=== PATIENT | male | born 1990 | race Caucasian/White ===

== ENCOUNTER 2023-11-16 12:47 | Emergency (ER) | payer OTHER ==
[2023-11-16 13:05] VITALS: RESP 16; TEMP 98
[2023-11-16 13:28] LABS: Basophils % (A) 0 %; Eosinophils # (A) 0.1 k/uL (0-0.7); Eosinophils % (A) 1 %; HCT 42.2 % (39.0-53.0); HGB 13.8 gm/dL (13.0-17.5); Lymphocytes # (A) 1.4 k/uL (1.0-4.8); Lymphocytes % (A) 15 %; MCH 28.6 pg (25.0-35.0); MCHC 32.8 g/dL (31.0-37.0); Mean Platelet Volume 6.8; Monocytes # (A) 0.3 k/uL (0-1.0); Monocytes % (A) 3 %; Neutrophils # (A) 7.9 k/uL (1.3-7.7); Neutrophils % (A) 81 %; Platelet Count 370 k/uL (150-450); RBC 4.85 m/uL (4.30-5.90); RDW 13.6 % (11.5-15.5); WBC 9.8 k/uL (3.8-10.6)
[2023-11-16] MEDS: KETOROLAC 15 MG/ML 1 ML VIAL IVP STA (13:31)
[2023-11-16] MEDS: SODIUM CHLORIDE 0.9% 1,000 ML IV STA (13:31)
[2023-11-16] MEDS: ONDANSETRON 4 MG/2 ML VIAL IVP STA (13:32)
[2023-11-16 13:41] LABS: ALT 42 U/L (4-49); AST 40 U/L (17-59); African American GFR (CKD) >90 (>60 ml/min/1.73 sqM); Albumin 5.1 g/dL (3.5-5.0); Alkaline Phosphatase 71 U/L (38-126); Anion Gap 10 mmol/L; Blood Urea Nitrogen 15 mg/dL (9-20); Calcium 10.2 mg/dL (8.4-10.2); Carbon Dioxide 25 mmol/L (22-30); Chloride 108 mmol/L (98-107); Glucose 118 mg/dL (74-99); Magnesium 2.2 mg/dL (1.6-2.3); Non-African American GFR(CKD) >90 (>60 ml/min/1.73 sqM); Potassium 4.4 mmol/L (3.5-5.1); Sodium 143 mmol/L (137-145); Total Bilirubin 0.5 mg/dL (0.2-1.3); Total Protein 8.1 g/dL (6.3-8.2)
[2023-11-16 13:46] LABS: INR 0.9 (<1.2); Partial Thromboplastin Time 25.3 sec (22.0-30.0); Prothrombin Time 10.4 sec (10.0-12.5)
--- NOTE | 2023-11-16 14:10 | XR ---
EXAMINATION TYPE: XR chest 2V DATE OF EXAM: 11/16/2023 COMPARISON: None INDICATION: Chest pain TECHNIQUE: Frontal and lateral views of the chest are obtained. FINDINGS: The heart size is normal. The pulmonary vasculature is normal. The lungs are clear. IMPRESSION: 1. No acute pulmonary process. [facility], , 11/16/2023 2:08 PM
--- NOTE | 2023-11-16 14:49 | ED ---
Chest Pain HPI - General Chief Complaint: Chest Pain Stated Complaint: Chest pain Time Seen by Provider: 11/16/23 12:50 Source: patient, EMS, RN notes reviewed Mode of arrival: EMS Limitations: no limitations - History of Present Illness Initial Comments: 33-year-old male presents emergency department with chief complaint of drug withdrawal. Patient states he was at [place]. He states that he is here for refractory pain abuse but states he is usually on Suboxone but he did not have it when he presented to [facility] and they were unable to prescribe this. Patient states to having severe withdrawal symptoms. He states he woke up this morning not feeling well states he is very anxious having palpitations of chest comfort. Patient with prior cardiac disease. He states the chest pain has essentially resolved patient is very anxious and having withdrawal symptoms including diarrhea, vomiting. - Related Data Home Medications Medication Instructions Recorded Confirmed Acetaminophen Tab [Tylenol] 650 mg PO Q4H 11/16/23 11/16/23 Amoxicillin 500 mg PO TID 11/16/23 11/16/23 Brexpiprazole [Rexulti] 2 mg PO DAILY 11/16/23 11/16/23 Calcium/Magnesium/Zinc/Vitamin D 1 tab PO TID PRN 11/16/23 11/16/23 334/134/5mg Ibuprofen [Motrin Ib] 600 mg PO Q6H PRN 11/16/23 11/16/23 Multivitamins, Thera [Multivitamin 1 tab PO DAILY 11/16/23 11/16/23 (formulary)] Nicotine [Nicoderm Cq 21 mg] 1 patch TRANSDERM DAILY 11/16/23 11/16/23 Thiamine [Vitamin B-1] 100 mg PO DAILY 11/16/23 11/16/23 Vortioxetine Hydrobromide 10 mg PO DAILY 11/16/23 11/16/23 [Trintellix] amLODIPine 10 mg PO DAILY 11/16/23 11/16/23 ondansetron HCL [Zofran] 8 mg PO Q6H PRN 11/16/23 11/16/23 Allergies Allergy/AdvReac Type Severity Reaction Status Date / Time Penicillins Allergy Rash/Hives Verified 11/16/23 14:30 tramadol Allergy pt states Verified 11/16/23 14:30 seizures Review of Systems ROS Statement: Those systems with pertinent positive or pertinent negative responses have been documented in the HPI. ROS Other: All systems not noted in ROS Statement are negative. EKG Findings - EKG Comments: EKG Findings:: EKG performed at 13: 03 sinus tachycardia rate of 103 WI 158 QRS 103 QT/QTc 341/401 - EKG Results: EKG: interpreted by LESLIE Past Medical History Additional Past Medical History / Comment(s): legally blind History of Any Multi-Drug Resistant Organisms: None Reported Past Psychological History: Anxiety, Depression Smoking Status: Never smoker Past Alcohol Use History: None Reported Past Drug Use History: Cocaine, Opiates General Exam Limitations: no limitations General appearance: alert, in no apparent distress Head exam: Present: atraumatic, normocephalic, normal inspection Eye exam: Present: normal appearance, PERRL, EOMI. Absent: scleral icterus, conjunctival injection, periorbital swelling ENT exam: Present: normal exam, mucous membranes moist Neck exam: Present: normal inspection, full ROM. Absent: tenderness, meningismus, lymphadenopathy Respiratory exam: Present: normal lung sounds bilaterally. Absent: respiratory distress, wheezes, rales, rhonchi, stridor Cardiovascular Exam: Present: normal rhythm, tachycardia, normal heart sounds. Absent: systolic murmur, diastolic murmur, rubs, gallop, clicks GI/Abdominal exam: Present: soft, normal bowel sounds. Absent: distended, tenderness, guarding, rebound, rigid Course Vital Signs 11/16/23 11/16/23 13:02 13:08 Temperature 98.0 F Pulse Rate 120 H Pulse Rate [ 117 H Pulse Oximetery ] Respiratory 16 Rate Blood Pressure 161/97 O2 Sat by Pulse 98 Oximetry Chest Pain MDM - MDM Was pt. sent in by a medical professional or institution (, PA, CIRCULATION CLERK, urgent care, hospital, or care home...) When possible be specific @ -[[place] Did you speak to anyone other than the patient for history (EMS, parent, family, police, friend...)? What history was obtained from this source @ -No Did you review nursing and triage notes (agree or disagree)? Why? @ -I reviewed and agree with nursing and triage notes Were old charts reviewed (outside hosp., previous admission, EMS record, old EKG, old radiological studies, urgent care reports/EKG's, care home records)? Report findings @ -No old charts were reviewed Differential Diagnosis (chest pain, altered mental status, abdominal pain women, abdominal pain men, vaginal bleeding, weakness, fever, dyspnea, syncope, headache, dizziness, GI bleed, back pain, seizure, CVA, palpatations, mental health, musculoskeletal)? @ -Differential Chest Pain: Stable Angina, Unstable Angina, STEMI, NSTEMI Aortic Dissection, Pneumothorax, Musculoskeletal, Esophageal Spasm GERD, Cholecystitis, Pancreatitis, Zoster, this is not meant to be an all-inclusive list. EKG interpreted by me (3pts min.). @ -As above X-rays interpreted by me (1pt min.). @ -[Chest x-ray shows no acute cardiopulmonary process CT interpreted by me (1pt min.). @ -None done U/S interpreted by me (1pt. min.). @ -None done What testing was considered but not performed or refused? (CT, X-rays, U/S, labs)? Why? @ -None What meds were considered but not given or refused? Why? @ -None Did you discuss the management of the patient with other professionals (professionals i.e. , PA, CIRCULATION CLERK, lab, RT, psych nurse, addiction social worker, criminal lawyer, teacher, chief innovation officer, returned case inspector)? Give summary @ -No Was smoking cessation discussed for >3mins.? @ -No Was critical care preformed (if so, how long)? @ -No Were there social determinants of health that impacted care today? How? (Homelessness, low income, unemployed, alcoholism, drug addiction, transportation, low edu. Level, literacy, decrease access to med. care, half-way, rehab)? @ -No Was there de-escalation of care discussed even if they declined (Discuss DNR or withdrawal of care, Hospice)? DNR status @ -No What co-morbidities impacted this encounter? (DM, HTN, Smoking, COPD, CAD, Cancer, CVA, ARF, Chemo, Hep., AIDS, mental health diagnosis, sleep apnea, morbid obesity)? @ -Drug abuse, hypertension Was patient admitted / discharged? Hospital course, mention meds given and route, prescriptions, significant lab abnormalities, going to OR and other pertinent info. @ -Discharge patient feels great this time with IV fluids and antiemetics patient is having current drug withdrawal troponin, D-dimer is negative there are no other acute process , remaining laboratory studies unremarkable Undiagnosed new problem with uncertain prognosis? @ -No Drug Therapy requiring intensive monitoring for toxicity (Heparin, Nitro, Insulin, Cardizem)? @ -No Were any procedures done? @ -No Diagnosis/symptom? @ -Drug withdrawal, atypical chest pain Acute, or Chronic, or Acute on Chronic? @ -Acute Uncomplicated (without systemic symptoms) or Complicated (systemic symptoms)? @ -Uncomplicated Side effects of treatment? @ -No Exacerbation, Progression, or Severe Exacerbation? @ -No Poses a threat to life or bodily function? How? (Chest pain, [place], [place], pneumonia, PE, COPD, DKA, ARF, appy, cholecystitis, CVA, Diverticulitis, Homicidal, Suicidal, threat to staff... and all critical care pts) @ -No Disposition Clinical Impression: Atypical chest pain, Drug withdrawal Disposition: HOME SELF-CARE Condition: Stable Instructions (If sedation given, give patient instructions): Chest Pain (ED) Additional Instructions: Please return to the Emergency Department if symptoms worsen or any other concerns. Is patient prescribed a controlled substance at d/c from ED?: No Referrals: Nonstaff,Physician [Primary Care Provider] - 1-2 days Time of Disposition: 14:49
[2023-11-16 14:55] VITALS: BP 147/89; PULSE 101
== END 2023-11-16 15:00 | disposition home or self-care (01) ==
LOC: EC 12:47
DX: R07.9 Chest pain, unspecified
CPT/HCPCS: 36415; 71046; 80053; 83735; 84484; 85025; 85379; 85610; 85730; 93005; 96361; 96374; 96375; 99285